=== PATIENT | female | born 1945 | race Caucasian/White ===

== ENCOUNTER 2022-05-31 21:48 | Emergency (ER) | payer OTHER ==
[~2022-05-31] VITALS: Ht 144.8 cm; Wt 40.8 kg
--- NOTE | 2022-05-31 21:50 | NUR ---
HU CATHETER SIZE 16FR PLACED IN GTUBE HOLE TO MAINTAIN PATENCY.
--- NOTE | 2022-06-01 | NUR ---
Pt in bed 5 at this time due to dislodged G-tube. MD aware. Family at bedside.
[2022-06-01] MEDS ORDERED: TOBR5DRO7 RIGHT EYE ×2 (00:21→01:30)
--- NOTE | 2022-06-01 00:26 | NUR ---
New G-tube placed by patient. Awaiting verification of placement by Xray at this time Addendum: 06/01/22 at 0118 by [email or web address] New G-tube placed by LORENA
[2022-06-01] MEDS ORDERED: GASTROGRAFIN 120 ML ONE (01:11)
--- NOTE | 2022-06-01 01:18 | NUR ---
MD at bedside assisting with verification of G-tube placement via radiology.
--- NOTE | 2022-06-01 01:30 | NUR ---
Pt colostomy bag drained at this time
--- NOTE | 2022-06-01 01:46 | NUR ---
Patient's daughter given written and verbal discharge instructions and verbalizes understanding. ER MD discussed with patient the results and treatment provided. Patient in stable condition. ID arm band removed. Rx of given. Patient educated on pain management and to follow up with PMD. Pain Scale . Opportunity for questions provided and answered. Medication side effect fact sheet provided.
[2022-06-01 01:51] VITALS: BP_SYST 107
== END 2022-06-01 01:51 | disposition home or self-care (01) ==
LOC: SED 21:48
DX: Z43.1 Encounter for attention to gastrostomy (principal)
CPT/HCPCS: 99284; 43762; 74018; Q9963

== ENCOUNTER 2022-07-27 21:52 | Emergency (ER) | payer OTHER ==
[~2022-07-27] VITALS: Ht 149.9 cm; Wt 36.3 kg
[~2022-07-27 21:52] MED LIST: TOBR5DRO7 RIGHT EYE
[2022-07-27 22:07] VITALS: BP_SYST 152
--- NOTE | 2022-07-27 22:08 | NUR ---
PT brought from home by daughter with c/o caballero leaking. Per daughter pt had the caballero placed yesterday and her home health nurse would not change it without a doctors order. Pt has hx of terminal dementia. Per daughter the A&O X 0 is baseline, and is non-ambulatory. Pt has hx of terminal dementia.
--- NOTE | 2022-07-27 22:09 | NUR ---
PATIENT HAS HOME HEALTH NURSE AND PLACED HU CATHETER YESTERDAY TO HELP PREVENT BED SORES. PATIENT IS LEAKING AROUND HU SITE BECAUSE CATHETER SIZE IS TOO SMALL. HOME HEALTH STATES PATIENT NEEDS DOCTOR ORDER FOR BIGGER SIZE HU AND TO COME TO ED FOR PLACEMENT OF BIGGER HU CATHETER. PATIENT BROUGHT FROM CAR TO GURNEY BECAUSE PATIENT IS BED BOUND, PATIENT IN [place] [facility] WAITING TO BE SEEN.
--- NOTE | 2022-07-27 22:27 | NUR ---
Dr. Grant at bedside with patient.
--- NOTE | 2022-07-27 22:53 | NUR ---
Urine collected and sent to lab.
[2022-07-27 23:10] LABS: BILIRUBIN,URINE NEGATIVE (NEGATIVE); COLOR,URINE STRAW (YELLOW); GLUCOSE,URINE NEGATIVE (NEGATIVE); KETONES,URINE NEGATIVE (NEGATIVE); LEUKOCYTE ESTERASE ,URINE 3+ (NEGATIVE); NITRITE, URINE NEGATIVE (NEGATIVE); PROTEIN URINE NEGATIVE (NEGATIVE); UROBILINOGEN,URINE 0.2 (0.2-1.0)
[2022-07-27 23:11] LABS: BLOOD, URINE TRACE (NEGATIVE); CLARITY/URINE HAZY (CLEAR)
[2022-07-27 23:16] LABS: BACTERIA,URINE FEW /HPF (None Seen)
[2022-07-27 23:17] LABS: MUCUS,URINE 1+ /LPF (None Seen)
[2022-07-28] MEDS ORDERED: CEFI200S2 PO (00:20)
--- NOTE | 2022-07-28 00:20 | NUR ---
# 22 FR Caballero catheter with use of sterile technique. Immediate return of 0 cc urine noted. Bedside drainage bag placed below level of bladder. Urine sample collected and sent to lab. Pt tolerated procedure WELL Patient arrived with caballero in place, changed due to standard of practice prior to admission. Patient unable to toilet self.
[2022-07-28] MEDS ORDERED: NACL 0.9% 1,000 ML IV ONE (00:45)
[2022-07-28] MEDS ORDERED: cefTRIAXone 1 GM IVPB PREMIX 50 ML IV ONE (02:06)
[2022-07-28] MEDS ORDERED: cefTRIAXone 1 GM in D5W 50 ML IV ONE (02:15)
[2022-07-28 02:30] VITALS: BP_SYST 135
--- NOTE | 2022-07-28 02:30 | NUR ---
Patients daughter given written and verbal discharge instructions and verbalizes understanding. ER Dr. Grant discussed with patient the results and treatment provided. Patient in stable condition. ID arm band removed. IV catheter removed intact and dressing applied, no active bleeding. Rx of cefixime given. Patient educated on pain management and to follow up with PMD. Pain Scale 0. Opportunity for questions provided and answered. Medication side effect fact sheet provided.
== END 2022-07-28 02:30 | disposition home or self-care (01) ==
LOC: SED 21:52
DX: Z46.6 Encounter for fitting and adjustment of urinary device (principal); N39.0 Urinary tract infection, site not specified; E86.0 Dehydration; Z79.899 Other long term (current) drug therapy
CPT/HCPCS: 99284; 81000; 87086; 96365; 96361; 51702; J0696; J7030